=== PATIENT | female | born 1975 | race Caucasian/White ===

== ENCOUNTER → 2016-06-14 | Outpatient (CLI) | payer OTHER ==
--- NOTE | 2016-07-05 15:45 | REPMRS ---
Patient History The patient states she has not had a clinical breast exam in over a year. Patient is nulliparous. Family history of ovarian cancer in mother at age 50 or over and breast cancer in maternal grandmother at age 45. Taking hormonal contraceptives for 23 years. Patient states she has had a right breast bx @36 and was negative. Out of [place] priors have frankie called for Digital Mammo Screening Bilat: June 14, 2016 - Exam #: [id number] Bilateral CC and MLO view(s) were taken. Technologist: Ericka Frazier, Technologist Prior study comparison: August 18, 2012, right breast diagnostic unilateral mammo, performed at [facility]. October 22, 2011, digital bilateral screening mammo, performed at [facility]. FINDINGS: The breast tissue is extremely dense which could obscure a lesion on mammography. There is an extremely dense symmetrical pattern of residual fibroglandular tissue. There has been no change in the appearance of the mammogram from the previous studies. There is no interval development of dominant mass, archetectural distortion, or microcalcific cluster suggestive of malignancy. ASSESSMENT: BI-RADS/ACR category 2 mammogram. Benign finding(s). Recommendation Routine screening mammogram of both breasts in 1 year (for women over age 40). This mammogram was interpreted with the aid of an FDA-approved computer-aided dectection system. Electronically Signed By: Kane Sawyer MD 07/05/16 0219
== END | disposition home or self-care (01) ==
LOC: M RAD 07:55
PROVIDERS: ATTEND Physician Assistant
DX: Z12.31 Encounter for screening mammogram for malignant neoplasm of breast (principal); N64.89 Other specified disorders of breast; Z80.3 Family history of malignant neoplasm of breast